=== PATIENT | female | born 1980 | race Caucasian/White ===

== ENCOUNTER 2020-10-05 06:55 | Day surgery (SDC) | payer OTHER ==
[~2020-10-05] VITALS: Ht 152.4 cm; Wt 85.8 kg
[~2020-10-05 06:55] MED LIST: AMLO2.5T5 PO; METO50TA82 PO
[2020-10-05 07:38] VITALS: BP 124/82
[2020-10-05] MEDS ORDERED: LACTATED RINGERS 1,000 ML IV SCH (08:00)
[2020-10-05] MEDS ORDERED: CHLORHEXIDINE 15 ML UDC MM ONE (08:00)
[2020-10-05] MEDS ORDERED: PROPOFOL 10 MG/ML, 50ML ONE (08:51)
== END 2020-10-05 10:45 | disposition home or self-care (01) ==
LOC: OUT 06:55
PROVIDERS: ATTEND Internal Medicine Gastroenterology
DX: K57.30 Diverticulosis of large intestine without perforation or abscess without bleeding (principal); I10 Essential (primary) hypertension; Z20.822 Contact with and (suspected) exposure to COVID-19; Z79.899 Other long term (current) drug therapy
CPT/HCPCS: 45341; 81025; 87635; J2704; J7120